=== PATIENT | female | born 1980 | race Two or more races ===

== ENCOUNTER 2021-06-17 10:48 | Emergency (ER) | payer MEDICAID ==
[~2021-06-17] VITALS: Ht 162.6 cm; Wt 97.7 kg
[2021-06-17] MEDS ORDERED: ACETAMINOPHEN 500 MG TABLET PO ONE (14:00)
[2021-06-17] MEDS ORDERED: ALBUTEROL SULFATE HFA 90 MCG/PUFF 8 GM INHALER IH ONE (15:45)
[2021-06-17 16:08] VITALS: BP 135/74
== END 2021-06-17 16:32 | disposition home or self-care (01) ==
LOC: EDSEX 10:54 → EMS 10:54
DX: U07.1 COVID-19 (principal); J12.82 Pneumonia due to coronavirus disease 2019
CPT/HCPCS: 71045; 99283; J3535